=== PATIENT | male | born 1990 | race Caucasian/White ===

== ENCOUNTER 2019-04-06 16:21 | Emergency (ER) | payer BC ==
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
[2019-04-06 18:45] LABS: BASO # 0.2 x10^3/uL (0.0-0.2); BASO % 10 % (0-3); EOS % 1 % (0-3); HEMATOCRIT 36.2 % (39.0-53.0); HEMOGLOBIN 12.2 g/dL (13.0-17.5); LYMPH % 50 % (24-48); MEAN CORPUSCULAR HEMOGLOBIN 25 pg (25-35); MEAN CORPUSCULAR HGB CONC 34 g/dL (31-37); MEAN CORPUSCULAR VOLUME 73 fL (79-100); MONO # 0.4 x10^3/uL (0.0-1.1); MONO % 18 % (0-9); NEUT # 0.4 x10^3/uL (1.8-7.7); NEUT % 22 % (31-73); PLATELET COUNT 389 x10^3/uL (140-400); RED BLOOD COUNT 4.95 x10^6/uL (4.30-5.70); RED CELL DISTRIBUTION WIDTH 15.8 % (11.5-14.5); WHITE BLOOD COUNT 2.1 x10^3/uL (4.0-11.0)
[2019-04-06 18:55] LABS: CALCIUM 9.6 mg/dL (8.5-10.1); CREATININE 0.9 mg/dL (0.7-1.3); GFR 101.2; POTASSIUM 3.9 mmol/L (3.5-5.1)
[2019-04-06 19:01] LABS: ALBUMIN 3.8 g/dL (3.4-5.0); TOTAL BILIRUBIN 0.3 mg/dL (0.2-1.0); TOTAL PROTEIN 7.5 g/dL (6.4-8.2)
[2019-04-06 19:14] LABS: % BANDS 11 % (0-9); % BASOS 5 % (0-3); % EOS 2 % (0-5); % LYMPHS 47 % (24-48); % MONOS 12 % (0-10); % PROS 1 % (0-0); % SEGS 22 % (35-66); ANISOCYTOSIS SLIGHT; HYPOCHROMIA SLIGHT; MICROCYTOSIS SLIGHT; NUCLEATED RBC 1; PLT ESTIMATE ADEQUATE (ADEQUATE); POLYCHROMASIA SLIGHT; STOMATOCYTES MOD
--- NOTE | 2019-04-06 19:28 | RAD ---
Examination: KUB History: Constipation Comparison/Correlation: None Findings: Supine portable frontal views of the abdomen were obtained. Left lung base is unremarkable. Gaseous distention of the colon noted. Small amount of stool is seen in the colon. No distention of small bowel identified. Left pelvic calcifications which probably represent phleboliths are present. Impression: Small amount of stool in the colon. No obstruction. Electronically signed by: Wiliam Martinez MD (04/06/2019 7:25 PM) [facility]
[2019-04-06] MEDS ORDERED: DICY10CA3 PO (19:40)
[2019-04-06] MEDS ORDERED: SIMETHICONE 80 MG TAB.CHEW PO PRN (19:45)
[2019-04-06] MEDS ORDERED: DICYCLOMINE 20 MG/2 ML AMPUL. IM ONE (20:00)
[2019-04-06 20:01] VITALS: BP 121/78
== END 2019-04-06 20:04 | disposition home or self-care (01) ==
LOC: ER 16:21
DX: R10.84 Generalized abdominal pain (principal); D70.9 Neutropenia, unspecified; C81.90 Hodgkin lymphoma, unspecified, unspecified site; R11.10 Vomiting, unspecified
CPT/HCPCS: 36415; 74018; 80053; 85007; 85025; 96372; 99285; J0500

== ENCOUNTER 2019-09-02 17:28 | Emergency (ER) | payer OTHER, BC ==
[~2019-09-02] VITALS: Ht 172.7 cm; Wt 120.0 kg
[~2019-09-02 17:28] MED LIST: DICY10CA3 PO
[2019-09-02] MEDS ORDERED: IV NORMAL SALINE 1000ML BAG 1,000 ML IV SCH (18:32)
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
[2019-09-02] MEDS ORDERED: fentaNYL PF VIAL 100 MCG/2 ML VIAL IV PRN (18:45)
[2019-09-02] MEDS ORDERED: ONDANSETRON PF 4 MG/2 ML VIAL. IVP ONE (18:45)
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
[2019-09-02 19:20] LABS: BASO # 0.1 x10^3/uL (0.0-0.2); BASO % 1 % (0-3); EOS # 0.3 x10^3/uL (0.0-0.7); EOS % 4 % (0-3); HEMATOCRIT 37.5 % (39.0-53.0); HEMOGLOBIN 12.7 g/dL (13.0-17.5); LYMPH # 1.5 x10^3/uL (1.0-4.8); LYMPH % 22 % (24-48); MEAN CORPUSCULAR HEMOGLOBIN 26 pg (25-35); MEAN CORPUSCULAR HGB CONC 34 g/dL (31-37); MEAN CORPUSCULAR VOLUME 77 fL (79-100); MONO % 14 % (0-9); NEUT # 4.1 x10^3/uL (1.8-7.7); NEUT % 59 % (31-73); PLATELET COUNT 362 x10^3/uL (140-400); RED BLOOD COUNT 4.85 x10^6/uL (4.30-5.70); RED CELL DISTRIBUTION WIDTH 19.2 % (11.5-14.5); WHITE BLOOD COUNT 6.9 x10^3/uL (4.0-11.0)
[2019-09-02 19:30] LABS: PROTHROMBIN TIME PATIENT 12.6 SEC (11.7-14.0)
[2019-09-02 19:40] LABS: ANION GAP 5 (6-14); BLOOD UREA NITROGEN 16 mg/dL (8-26); CALCIUM 8.6 mg/dL (8.5-10.1); CARBON DIOXIDE 30 mmol/L (21-32); CHLORIDE 104 mmol/L (98-107); CREATININE 0.8 mg/dL (0.7-1.3); GLUCOSE 88 mg/dL (70-99); POTASSIUM 4.2 mmol/L (3.5-5.1); SODIUM 139 mmol/L (136-145)
[2019-09-02 19:46] LABS: ALBUMIN 3.6 g/dL (3.4-5.0); ALK PHOS 79 U/L (46-116); ALT (SGPT) 30 U/L (16-63); AST (SGOT) 17 U/L (15-37); DIRECT BILIRUBIN < 0.1 mg/dL (0.0-0.2); TOTAL BILIRUBIN 0.1 mg/dL (0.2-1.0); TOTAL PROTEIN 7.1 g/dL (6.4-8.2)
[2019-09-02] MEDS ORDERED: IOHEXOL 300 MG/ML 100ML VIAL. IV ONE (20:00)
[2019-09-02] MEDS ORDERED: CONTRAST GIVEN. MC PRN (20:15)
[2019-09-02] MEDS ORDERED: fentaNYL PF VIAL 100 MCG/2 ML VIAL IVP ONE (20:15)
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
[2019-09-02] MEDS ORDERED: DICL50TA4 PO (20:39)
[2019-09-02] MEDS ORDERED: ORPH100T PO (20:39)
[2019-09-02] MEDS ORDERED: HYDR-3164 PO (20:39)
[2019-09-02 20:47] LABS: BILIRUBIN,URINE NEGATIVE (NEG); CLARITY,URINE CLEAR; COLOR,URINE YELLOW; NITRITE,URINE NEGATIVE (NEG); PROTEIN,URINE NEGATIVE (NEG-TRACE)
[2019-09-02 20:50] VITALS: BP 169/95
[2019-09-02 20:56] LABS: BACTERIA,URINE 0 /HPF (0-FEW); RBC,URINE 0 /HPF (0-2); WBC,URINE 0 /HPF (0-4)
--- NOTE | 2019-09-03 06:27 | EKG ---
[facility] [address] [place] [address] Test Date: 2019-09-02 Test Time: 19:18:01 Pat Name: RENALDO BANUELOS Department: Room: Gender: M Video Game Creator: : 1990 Requested By: SERGIO SANTOS Order Number: [id number] Reading MD: Jerad Jaimes Measurements Intervals [place] Rate: 78 P: 54 DC: 160 QRS: 64 QRSD: 88 T: 26 QT: 372 QTc: 428 Interpretive Statements SINUS RHYTHM Electronically Signed On 09-05-2019 16:16:11 CDT by Jerad Jaimes
== END 2019-09-02 20:58 | disposition home or self-care (01) ==
LOC: ER 17:28
DX: S29.012A Strain of muscle and tendon of back wall of thorax, initial encounter (principal); S20.211A Contusion of right front wall of thorax, initial encounter; S30.1XXA Contusion of abdominal wall, initial encounter; C85.94 Non-Hodgkin lymphoma, unspecified, lymph nodes of axilla and upper limb; V49.49XA Driver injured in collision with other motor vehicles in traffic accident, initial encounter; Y92.488 Other paved roadways as the place of occurrence of the external cause; Y93.89 Activity, other specified; Y99.9 Unspecified external cause status
CPT/HCPCS: 36415; 71045; 71260; 74177; 80048; 80076; 81001; 85025; 85610; 85730; 86850; 86900; 86901; 93005; 96374; 96375; 96376; 99285; J2405; J3010; J7030; Q9967

== ENCOUNTER 2020-11-09 20:52 | Emergency (ER) | payer BC, OTHER ==
[~2020-11-09] VITALS: Ht 175.3 cm; Wt 136.0 kg
[~2020-11-09 20:52] MED LIST changes: +DICL50TA4 PO; +HYDR-3164 PO; +ORPH100T PO
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
--- NOTE | 2020-11-09 22:24 | RAD ---
Exam: Left ankle 3 views INDICATION: Ankle pain, swollen TECHNIQUE: Frontal, lateral and oblique views of the left ankle Comparisons: None FINDINGS: Soft tissue swelling surrounding the left ankle. There is a small ossific density adjacent to the med ial malleolus, may relate to a small avulsion fracture fragment. Joint spaces are well-maintained. Heriberto ne mineralization is normal. IMPRESSION: Possible small avulsion fracture fragment adjacent to the medial malleolus with surrounding soft tiss ue swelling. Electronically signed by: Tiffanie Harris MD (11/09/2020 10:21 PM) L[facility]
[2020-11-09] MEDS ORDERED: HYDR-2759 PO (23:11)
[2020-11-09 23:30] VITALS: BP 140/72
== END 2020-11-09 23:50 | disposition home or self-care (01) ==
LOC: ER 20:52
DX: S82.892A Other fracture of left lower leg, initial encounter for closed fracture (principal); S00.93XA Contusion of unspecified part of head, initial encounter; W22.8XXA Striking against or struck by other objects, initial encounter; Y93.89 Activity, other specified; Y92.89 Other specified places as the place of occurrence of the external cause; Y99.8 Other external cause status
CPT/HCPCS: 29515; 70450; 73610; 99284-25